=== PATIENT | male | born 1970 | race Two or more races ===

== ENCOUNTER 2019-09-02 11:05 | Outpatient (CLI) | payer MEDICAID ==
[~2019-09-02] VITALS: Ht 182.9 cm; Wt 114.3 kg
[~2019-09-02 11:05] MED LIST: NKM
[2019-09-02 11:25] VITALS: BP 140/75
[2019-09-02] MEDS ORDERED: ELIQUIS5 MG PO (15:32)
[2019-09-02] MEDS ORDERED: METOPROLOL TART50 M1 ORAL (15:32)
--- NOTE | 2019-09-02 17:45 | Consultation ---
DATE OF CONSULTATION: 09/02/2019 CONSULTING PHYSICIAN: Lane Zepeda M.D. CHIEF COMPLAINT: Rectal bleeding. HISTORY OF PRESENT ILLNESS: This is a pleasant 49-year-old male with past medical history of hypertension, coronary artery disease, history of defibrillator placement apparently about 6 months ago, who presents to us with complaint of rectal bleeding. Last rectal bleeding was in May, according to him was pretty heavy, but had not had any bleeding since then. He was referred to us for evaluation of rectal bleeding. PAST MEDICAL HISTORY: 1. Hypertension. 2. Coronary artery disease. PAST SURGICAL HISTORY: History of throat surgery and also defibrillator placement 6 months ago. MEDICATIONS: Eliquis and propranolol. FAMILY HISTORY: Noncontributory. SOCIAL HISTORY: The patient denies any alcohol, but smokes about 10 cigarettes per day. Denies any IV drug abuse. ALLERGIES: No known allergies. PHYSICAL EXAMINATION: VITAL SIGNS: Temperature 97.4, blood pressure 140/75, pulse rate 64, and respirations 20. HEENT: Normocephalic and atraumatic. Sclerae anicteric. NECK: Supple. No evidence of obvious lymphadenopathy. CARDIOVASCULAR: Regular rhythm. Plus S1, S2. LUNGS: Clear to auscultation bilaterally. ABDOMEN: Positive bowel sounds. Soft and nontender. No rebound. No guarding. No peritoneal sign. EXTREMITIES: No cyanosis. No clubbing. No edema. ASSESSMENT: This is a 49-year-old male with rectal bleeding, on Eliquis. PLAN: Given the rectal bleeding was back in May, so the patient has not had over 2 months of bleeding. Given the patient has a defibrillator placed 6 months ago, on Eliquis, we recommend the patient to get a cardiac clearance to see if he can stop Eliquis for two days prior to the procedure. The patient was told to come back if he had recurrent bleeding. At that point, we have no choice and we will stop the Eliquis and do the procedure. Otherwise, we will wait for cardiac clearance before scheduling. Lane Zepeda M.D. DR: Maria Eugenia JOB#: [id number] CC:
== END 2019-09-02 13:35 | disposition home or self-care (01) ==
LOC: PAN 11:05
DX: K63.5 Polyp of colon (principal); I11.9 Hypertensive heart disease without heart failure; I25.10 Atherosclerotic heart disease of native coronary artery without angina pectoris; Z79.01 Long term (current) use of anticoagulants; F17.210 Nicotine dependence, cigarettes, uncomplicated
CPT/HCPCS: G0463

== ENCOUNTER → 2020-06-03 | Outpatient (CLI) | payer MEDICAID ==
[~2020-06-03] MED LIST changes: +ELIQUIS5 MG PO; +METOPROLOL TART50 M1 ORAL
[2020-06-03 13:43] VITALS: BP 150/97
--- NOTE | 2020-06-08 08:18 | General Progress Note ---
Subjective ROS Limited/Unobtainable: Yes Allergies: Coded Allergies: No Known Allergies (Unverified , 10/08/13) Objective General Appearance: alert EENT: normal ENT inspection Neck: supple Cardiovascular: normal rate Respiratory/Chest: lungs clear Abdomen: normal bowel sounds, non tender, soft Extremities: non-tender Assessment/Plan Assessment/Plan: s/p colonoscopy 3 polyps ppor prep recommend repeat colonoscopy in one year Lane Zepeda MD Jun 08, 2020 08:18
== END | disposition home or self-care (01) ==
LOC: PAN 13:14
DX: K63.5 Polyp of colon (principal)
CPT/HCPCS: 99212